=== PATIENT | male | born 1985 | race American Indian/Alaskan Native ===

== ENCOUNTER 2020-10-06 07:26 | Observation (INO) | payer OTHER ==
[2020-10-06] MEDS ORDERED: predniSONE 20 MG TAB PO ONE (08:12)
[2020-10-06] MEDS ORDERED: IPRATROPIUM/ALBUTEROL SULFATE 3 ML AMPUL.NEB IH ONE (08:12)
--- NOTE | 2020-10-06 08:17 | Emergency Department Report ---
ED Shortness of Breath HPI - General Chief Complaint: Upper Respiratory Infection Stated Complaint: ASHLEY/COUGH Time Seen by Provider: 10/06/20 07:30 Source: patient Mode of arrival: Wheelchair Limitations: No Limitations - History of Present Illness Initial Comments: Chief complaint: Shortness of breath cough HPI: This is a 35-year-old male with history of HIV on ART, tobacco dependence, who presents with shortness of breath and cough for 3 days. 1 month ago patient was discharged after 7 days admission at the [facility] for pneumonia. He had a full recovery. He received 2 doses of COVID-19 vaccine. He works in a restaurant. No known sick contacts. He arrived via EMS. He denies fever, chest pain. He has had diarrhea. He smokes cigarettes daily. He was Covid negative according to his report during his last admission at the [facility]. MD Complaint: shortness of breath, cough -: Gradual, days(s) (3 days ago) Severity: moderate Consistency: constant Improves With: nothing Worsens With: nothing Known History Of: HIV Associated Symptoms: cough, other (Diarrhea) Treatments Prior to Arrival: other (EMS transportation) - Related Data Home Medications Medication Instructions Recorded Confirmed Last Taken Darunavir/Cob/Emtri/Tenof Alaf 1 each PO QDAY 10/06/20 10/06/20 Unknown [Symtuza 829-581-963-10 mg Tab] Allergies Allergy/AdvReac Type Severity Reaction Status Date / Time No Known Allergies Allergy Unverified 10/06/20 07:30 ED Review of Systems ROS: Stated complaint: ASHLEY/COUGH Other details as noted in HPI Comment: All other systems reviewed and negative Constitutional: denies: chills, fever, malaise Respiratory: cough, shortness of breath Cardiovascular: denies: chest pain Gastrointestinal: diarrhea. denies: abdominal pain, nausea, vomiting Genitourinary: denies: as per HPI ED Past Medical Hx - Past Medical History Previous Medical History?: Yes Hx Hypertension: Yes Hx HIV: Yes - Surgical History Past Surgical History?: No - Social History Smoking Status: Current Every Day Smoker Substance Use Type: None - Medications Home Medications: Home Medications Medication Instructions Recorded Confirmed Last Taken Type Darunavir/Cob/Emtri/Tenof Alaf 1 each PO QDAY 10/06/20 10/06/20 Unknown History [Symtuza 419-854-729-10 mg Tab] ED Physical Exam - General Limitations: No Limitations General appearance: alert, in no apparent distress, other (Frequent cough) - Head Head exam: Present: atraumatic, normocephalic - Eye Eye exam: Present: normal appearance - ENT ENT exam: Present: mucous membranes moist - Neck Neck exam: Present: normal inspection, full ROM - Respiratory Respiratory exam: Present: respiratory distress, wheezes, decreased breath sounds, prolonged expiratory. Absent: rales, rhonchi, chest wall tenderness, accessory muscle use - Cardiovascular Cardiovascular Exam: Present: regular rate, normal rhythm, normal heart sounds. Absent: systolic murmur, diastolic murmur, rubs, gallop - GI/Abdominal GI/Abdominal exam: Present: soft, normal bowel sounds. Absent: distended, tenderness, guarding, rebound - Rectal Rectal exam: Present: deferred - Extremities Exam Extremities exam: Present: normal inspection - Neurological Exam Neurological exam: Present: alert, oriented X3 - Psychiatric Psychiatric exam: Present: normal affect, normal mood - Skin Skin exam: Present: warm, dry, intact, normal color. Absent: rash ED Course Vital Signs 10/06/20 10/06/20 07:30 09:13 Temperature 98.9 F Pulse Rate 93 H Pulse Rate [ 98 H Anterior Bilateral Throughout] Respiratory 22 Rate Respiratory 28 H Rate [Anterior Bilateral Throughout] Blood Pressure 123/86 [Right] O2 Sat by Pulse 89 Oximetry ED Medical Decision Making - Lab Data Result diagrams: 10/06/20 08:12 10/06/20 09:06 Laboratory Results - last 24 hr 10/06/20 10/06/20 10/06/20 08:12 08:17 08:17 WBC 10.0 RBC 4.58 Hgb 14.8 Hct 44.4 MCV 97 H MCH 32 MCHC 33 RDW 14.2 Plt Count 166 Lymph % (Auto) 18.5 Rhea % (Auto) 9.8 H Eos % (Auto) 1.3 Baso % (Auto) 0.4 Lymph # (Auto) 1.8 Rhea # (Auto) 1.0 H Eos # (Auto) 0.1 Baso # (Auto) 0.0 Seg Neutrophils % 70.0 Seg Neutrophils # 7.0 D-Dimer 240.30 H Lactate Dehydrogenase 248 H C-Reactive Protein 0.90 - Radiology Data Radiology results: report reviewed Patient Name: BEVERLEY HOUSE Gender: Male Date of : 1985 Referring Provider: CALI SIMON Organization: [facility] Accession Number: [id number] Requested Date: October 06, 2020 08:12 Report Status: Final Requested Procedure: 1 Procedure Description: XR chest 1V ap Modality: XR Findings Reporting MD: Dre You Dictation Time: October 06, 2020 07:37 Tumbler Operator: Not available Line Analyst Date: CHEST 1 VIEW 10/06/2020 8:16 AM INDICATION / CLINICAL INFORMATION: Cough, shortness of breath. COMPARISON: None available. FINDINGS: SUPPORT DEVICES: None. HEART / MEDIASTINUM: No significant abnormality. LUNGS / PLEURA: Indistinct pulmonary opacities are seen along the right mid/lower lung. No other significant pulmonary abnormality. No significant pleural effusion. No pneumothorax. ADDITIONAL FINDINGS: No significant additional findings. IMPRESSION: Right pulmonary opacities are concerning for pneumonia given the provided history. Continued radiographic follow-up to resolution is recommended. Signer Name: Dre You MD Signed: 10/06/2020 7:37 AM Workstation Name: [id number] - Medical Decision Making Acute respiratory failure hypoxia, oxygen saturation 89%. [facility] Patient stated he had a full recovery. Currently has multiple right-sided infiltrates seen on chest radiograph today. Differential diagnosis includes community- acquired bacterial organism, atypical viral infection such as COVID-19, opportunistic infection,. Patient has been compliant with ART. Opportunistic infection not likely. P.o. antibiotics initiated emergency department include ceftriaxone azithromycin and Bactrim. Admitted to the hospital service for further treatment evaluation. Patient has not been vaccinated for COVID-19. Covid contact droplet precautions initiated in the emergency department. I spoke with Dr. Us infectious disease franchise business consultant who agreed to evaluate patient Critical care attestation.: If time is entered above; I have spent that time in minutes in the direct care of this critically ill patient, excluding procedure time. ED Disposition Clinical Impression: Acute respiratory failure with hypoxia, Community acquired pneumonia, Suspected COVID-19 virus infection, HIV disease Disposition: OP ADMIT IP TO THIS HOSP Is pt being admited?: Yes Does the pt Need Aspirin: No Condition: Stable Instructions: Bacterial Pneumonia (ED)
--- NOTE | 2020-10-06 08:41 | XRay Report ---
CHEST 1 VIEW 10/06/2020 8:16 AM INDICATION / CLINICAL INFORMATION: Cough, shortness of breath. COMPARISON: None available. FINDINGS: SUPPORT DEVICES: None. HEART / MEDIASTINUM: No significant abnormality. LUNGS / PLEURA: Indistinct pulmonary opacities are seen along the right mid/lower lung. No other sign ificant pulmonary abnormality. No significant pleural effusion. No pneumothorax. ADDITIONAL FINDINGS: No significant additional findings. IMPRESSION: Right pulmonary opacities are concerning for pneumonia given the provided history. Continued radiogra phic follow-up to resolution is recommended. Signer Name: Dre You MD Signed: 10/06/2020 8:37 AM Workstation Name: [id number]
[2020-10-06] MEDS ORDERED: cefTRIAXone/NS 1 GM/50 ML 1 GM/50 ML BAG IV ONE (09:42)
[2020-10-06] MEDS ORDERED: SULFAMETHOXAZOLE/TRIMETHOPRIM 800/160MG DS TAB PO ONE (09:42)
[2020-10-06] MEDS ORDERED: AZITHROMYCIN/NS 500 MG/250 ML 500 MG/250 ML BAG IV ONE (09:42)
[2020-10-06 09:47] LABS: Basophils % (Auto) 0.4 % (0.0-1.8); Eosinophils # (Auto) 0.1 K/mm3 (0.0-0.4); Eosinophils % (Auto) 1.3 % (0.0-4.3); Hematocrit 44.4 % (35.5-45.6); Hemoglobin 14.8 gm/dl (11.8-15.2); Lymphocytes # (Auto) 1.8 K/mm3 (1.2-5.4); Lymphocytes % (Auto) 18.5 % (13.4-35.0); Mean Corpuscular HGB Conc 33 % (32-34); Mean Corpuscular Volume 97 fl (84-94); Monocytes % (Auto) 9.8 % (0.0-7.3); Platelet Count 166 K/mm3 (140-440); Red Blood Count 4.58 M/mm3 (3.65-5.03); Red Cell Distribution Width 14.2 % (13.2-15.2)
[2020-10-06 09:57] LABS: C-Reactive Protein 0.9 mg/dL (0.00-1.30)
[2020-10-06 11:51] LABS: BUN/Creatinine Ratio 12; Blood Urea Nitrogen 13 mg/dL (9-20); Calcium 8.9 mg/dL (8.4-10.2); Hemolysis Index 6
--- NOTE | 2020-10-06 12:39 | Event Note ---
Date: 10/06/20 35-year-old male with HIV on Symtuza admitted with cough and shortness of breath after recent discharge from [facility] for pneumonia. Patient is status post COVID-19 vaccination. Not hypoxic on admission, chest x-ray shows right pulmonary opacities. Labs with WBC 10, CRP 0.9, ferritin 122.5, LDH 248, procalcitonin 0.08. Recs: Empiric ceftriaxone, azithromycin for now Follow-up COVID-19 PCR HIV RNA PCR, CD4 count ordered continue Symtuza - (per hospital formulary therapeutic interchange to TDF, FTC, r/DRV) RSV screen ordered Full consult in a.m. Laurie Us MD, FACP [facility] O: [phone] F: [phone]
[2020-10-06] MEDS ORDERED: ONDANSETRON 4 MG/2 ML INJ IV PRN (20:23)
[2020-10-06] MEDS ORDERED: ACETAMINOPHEN 325 MG TAB PO PRN (20:23)
[2020-10-06] MEDS ORDERED: HYDROmorphone 1 MG/1 ML INJ IV PRN (20:24)
[2020-10-06] MEDS ORDERED: oxyCODONE /ACETAMINOPHEN 5-325MG TAB PO PRN (20:24)
[2020-10-06] MEDS ORDERED: SODIUM CHLORIDE 0.9% 1000 ML 1,000 ML IV SCH (20:30)
--- NOTE | 2020-10-06 20:30 | History and Physical Report ---
History of Present Illness Date of examination: 10/06/20 Date of admission: 10/06/20 11:52 Chief complaint: Shortness of breath for 3 days Cough for 3 days History of present illness: 35-year-old male with a history of HIV and COPD on antiretroviral therapy along with nicotine dependence comes in for shortness of breath of 3 days. Patient was recently discharged from the [facility] after being treated for pneumonia. Apparently had full recovery and received 2 doses of COVID-19 vaccinations recently. 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 Shortness of breath and cough for 3 days cough productive of mucoid sputum. No yellow sputum. Smokes about half a pack a day. No exacerbating or relieving factors. Compliant with his antiretroviral therapy. No orthopnea. Shortness of breath is exertional also. - Past Medical History Previous Medical History?: Yes --Hypertension: Yes --HIV: Yes - Surgical History Past Surgical History?: No - Social History Smoking Status: Current Every Day Smoker Substance Use Type: None - Medications Home Medications: Home Medications Medication Instructions Recorded Confirmed Last Taken Type Darunavir/Cob/Emtri/Tenof Alaf 1 each PO QDAY 10/06/20 10/06/20 Unknown History [Symtuza 741-798-197-10 mg Tab] Review of Systems ROS: Constitutional no weight loss or weight gain no fever or chills HEENT no sore throat no post nasal drip no diplopia Neck no neck stiffness no lymph gland enlargement Chest and lungs shortness of breath and cough for 3 days. Recent pneumonia 1 month ago. 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 no syncope no seizures Skin no rash no itching Psychiatric no depression no homicidal or suicidal tendencies Hematologic no lymphedema or bruising Endocrine no polydipsia no polyuria no cold intolerance no heat intolerance Medications and Allergies Allergies Allergy/AdvReac Type Severity Reaction Status Date / Time No Known Allergies Allergy Verified 10/06/20 14:53 Home Medications Medication Instructions Recorded Confirmed Last Taken Type Darunavir/Cob/Emtri/Tenof Alaf 1 each PO QDAY 10/06/20 10/06/20 Unknown History [Symtuza 830-742-941-10 mg Tab] Furosemide [Lasix] 40 mg PO PRN 10/06/20 10/06/2021 History 40 carvediloL [Coreg] 12.5 mg PO BID 10/06/20 10/06/20 10/06/20 10:00 History lisinopriL [Lisinopril] 20 mg PO DAILY 10/06/20 10/06/20 10/05/20 10:00 History 20 MG Exam - Constitutional Vitals: Temp Pulse Resp BP Pulse Ox 97.3 F L 83 16 119/77 95 10/06/20 13:28 10/06/20 13:28 10/06/20 13:28 10/06/20 13:28 10/06/20 13:28 General appearance: Present: mild distress, well-nourished - EENT Eyes: Present: PERRL ENT: hearing intact, clear oral mucosa - Neck Neck: Present: supple, normal ROM - Respiratory Respiratory effort: normal Respiratory: bilateral: CTA, rhonchi, wheezing - Cardiovascular Heart rate: 78 Rhythm: regular Heart Sounds: Present: S1 & S2. Absent: rub, click - Extremities Extremities: pulses symmetrical, No edema Peripheral Pulses: within normal limits - Abdominal General gastrointestinal: Present: soft, non-tender, non-distended, normal bowel sounds Male genitourinary: Present: normal - Integumentary Integumentary: Present: clear, warm, dry - Musculoskeletal Musculoskeletal: gait normal, strength equal bilaterally - Psychiatric Psychiatric: appropriate mood/affect, intact judgment & insight - Neurologic Neurologic: CNII-XII intact, moves all extremities - Allied Health Allied health notes reviewed: nursing, case management Results - Labs CBC & Chem 7: 10/06/20 08:12 10/06/20 09:06 Labs: Laboratory Last Values WBC 10.0 K/mm3 (4.5-11.0) 10/06/20 08:12 RBC 4.58 M/mm3 (3.65-5.03) 10/06/20 08:12 Hgb 14.8 gm/dl (11.8-15.2) 10/06/20 08:12 Hct 44.4 % (35.5-45.6) 10/06/20 08:12 MCV 97 fl (84-94) H 10/06/20 08:12 MCH 32 pg (28-32) 10/06/20 08:12 MCHC 33 % (32-34) 10/06/20 08:12 RDW 14.2 % (13.2-15.2) 10/06/20 08:12 Plt Count 166 K/mm3 (140-440) 10/06/20 08:12 Lymph % (Auto) 18.5 % (13.4-35.0) 10/06/20 08:12 Giles % (Auto) 9.8 % (0.0-7.3) H 10/06/20 08:12 Eos % (Auto) 1.3 % (0.0-4.3) 10/06/20 08:12 Baso % (Auto) 0.4 % (0.0-1.8) 10/06/20 08:12 Lymph # (Auto) 1.8 K/mm3 (1.2-5.4) 10/06/20 08:12 Giles # (Auto) 1.0 K/mm3 (0.0-0.8) H 10/06/20 08:12 Eos # (Auto) 0.1 K/mm3 (0.0-0.4) 10/06/20 08:12 Baso # (Auto) 0.0 K/mm3 (0.0-0.1) 10/06/20 08:12 Seg Neutrophils % 70.0 % (40.0-70.0) 10/06/20 08:12 Seg Neutrophils # 7.0 K/mm3 (1.8-7.7) 10/06/20 08:12 D-Dimer 240.30 ng/mlDDU (0-234) H 10/06/20 08:17 Sodium 142 mmol/L (137-145) 10/06/20 09:06 Potassium 3.9 mmol/L (3.6-5.0) 10/06/20 09:06 Chloride 102.3 mmol/L (98-107) 10/06/20 09:06 Carbon Dioxide 22 mmol/L (22-30) 10/06/20 09:06 Anion Gap 22 mmol/L 10/06/20 09:06 BUN 13 mg/dL (9-20) 10/06/20 09:06 Creatinine 1.1 mg/dL (0.8-1.3) 10/06/20 09:06 Estimated GFR > 60 ml/min 10/06/20 09:06 BUN/Creatinine Ratio 12 % 10/06/20 09:06 Glucose 86 mg/dL (75-100) 10/06/20 09:06 Calcium 8.9 mg/dL (8.4-10.2) 10/06/20 09:06 Ferritin 122.5 ng/mL (30.0-300.0) 10/06/20 09:06 Lactate Dehydrogenase 248 units/L (91-180) H 10/06/20 08:17 C-Reactive Protein 0.90 mg/dL (0.00-1.30) 10/06/20 08:17 Procalcitonin 0.08 ng/mL (<0.15) 10/06/20 09:06 Coronavirus (PCR) Negative (Negative) 10/06/20 09:44 - Imaging and Cardiology Chest x-ray: report reviewed Imaging and Cardiology: Chest x-ray Right pulmonary opacities are concerning for pneumonia given the provided history. Continue radiographic follow-up to resolution is recommended. Assessment and Plan Advance Directives: Yes (Full code) VTE prophylaxis?: Chemical Plan of care discussed with patient/family: Yes - Patient Problems (1) Acute respiratory failure with hypoxia Current Visit: Yes Status: Acute Plan to address problem: Patient was hypoxic initially. Oxygen supplementation as necessary. O2 sats improved with oxygen supplements. (2) Right lower lobe pneumonia Current Visit: Yes Status: Acute Plan to address problem: Differential diagnosis of PCP because patient had pneumonia recently 1 month ago. For the time being treat as community-acquired pneumonia. Patient initiated on IV Zithromax and IV ceftriaxone. ID consulted. (3) Suspected COVID-19 virus infection Current Visit: Yes Status: Acute Plan to address problem: Covid PCR requested. (4) HIV disease Current Visit: Yes Status: Chronic Plan to address problem: Continue home antiretrovirals. ID also consulted. PCP is a possibility. (5) Hypertension Current Visit: Yes Status: Chronic Qualifiers: Hypertension type: primary hypertension Qualified Code(s): I10 - Essential (primary) hypertension Plan to address problem: Continue antihypertensives. (6) DVT prophylaxis Current Visit: Yes Status: Acute Plan to address problem: On heparin and GI prophylaxis
[2020-10-06] MEDS: carvediloL 12.5 MG TAB PO SCH (22:30)
[2020-10-06] MEDS: LISINOPRIL 20 MG TAB PO SCH (22:30)
[2020-10-06] MEDS: FAMOTIDINE 20 MG TAB PO SCH (22:32)
[2020-10-07] MEDS: guaiFENesin 100 MG/5 ML ORAL LIQD PO PRN ×2 (00:48→06:51)
[2020-10-07 06:27] LABS: Basophils # (Auto) 0.1 K/mm3 (0.0-0.1); Basophils % (Auto) 0.6 % (0.0-1.8); Eosinophils % (Auto) 0.1 % (0.0-4.3); Hematocrit 44.6 % (35.5-45.6); Hemoglobin 15.1 gm/dl (11.8-15.2); Lymphocytes # (Auto) 2.3 K/mm3 (1.2-5.4); Lymphocytes % (Auto) 14.8 % (13.4-35.0); Mean Corpuscular HGB Conc 34 % (32-34); Mean Corpuscular Volume 97 fl (84-94); Monocytes # (Auto) 1.4 K/mm3 (0.0-0.8); Monocytes % (Auto) 8.9 % (0.0-7.3); Platelet Count 172 K/mm3 (140-440); Red Blood Count 4.58 M/mm3 (3.65-5.03); Red Cell Distribution Width 14.7 % (13.2-15.2)
[2020-10-07 06:49] LABS: Alanine Aminotransferase 45 units/L (7-56); Albumin 3.1 g/dL (3.9-5); BUN/Creatinine Ratio 15; Blood Urea Nitrogen 17 mg/dL (9-20); Hemolysis Index 4
[2020-10-07] MEDS: HEPARIN 5,000 UNIT/1 ML VIAL SUB-Q SCH ×2 (09:27→21:33)
[2020-10-07] MEDS: carvediloL 12.5 MG TAB PO SCH ×2 (09:28→21:33)
[2020-10-07] MEDS: LISINOPRIL 20 MG TAB PO SCH (09:28)
[2020-10-07] MEDS: FAMOTIDINE 20 MG TAB PO SCH ×2 (09:28→21:33)
[2020-10-07] MEDS: BENZONATATE 100 MG CAP PO SCH ×3 (09:31→21:33)
[2020-10-07] MEDS ORDERED: cefTRIAXone/NS 2 GM/100 ML 2 GM/100 ML BAG IV SCH (10:00)
[2020-10-07] MEDS ORDERED: AZITHROMYCIN/NS 500 MG/250 ML 500 MG/250 ML BAG IV SCH (10:00)
--- NOTE | 2020-10-07 12:21 | Consultation ---
History of Present Illness - Reason for Consult Consult date: 10/07/20 hiv, pneumonia Requesting physician: IAIN ARCHER - History of Present Illness The patient is a 35-year-old male with HIV on Symtuza admitted with cough and shortness of breath after recent discharge from [facility] for pneumonia. Patient is status post COVID-19 vaccination. Not hypoxic on admission, chest x-ray shows right pulmonary opacities. Continues to complain of significant cough. Labs on admission showed WBC 10.0, D-dimer 240, procalcitonin 0.08. COVID-19 PCR is negative. Patient denies alcohol, does smoke cigarettes daily. Denies history of asthma. Patient was at a motel. HIV diagnosed in 2007, reports HIV doc at the [facility], apparently has been undetectable for 11 years, but doesn't remember CD4 count. Has been on Symtuza for the last few months. Review of Systems: General: no fevers,chills or rigors HEENT: no new visual disturbance Respiratory: Significant cough, shortness of breath Cardiovascular: No chest pain, syncope Gastrointestinal: No nausea, vomiting or diarrhea Genitourinary: No dysuria or hematuria Musculoskeletal: No new or worsening neck pain or back pain Neurologic: No headaches, seizures Hematologic: No easy bruising or bleeding Endocrine: No night sweats or acute weight loss Skin: negative for rash, jaundice Psychiatric: No suicidal or homicidal ideation Medications and Allergies Allergies Allergy/AdvReac Type Severity Reaction Status Date / Time No Known Allergies Allergy Verified 10/06/20 14:53 Home Medications Medication Instructions Recorded Confirmed Last Taken Type Darunavir/Cob/Emtri/Tenof Alaf 1 each PO QDAY 10/06/20 10/06/20 Unknown History [Symtuza 709-476-617-10 mg Tab] Furosemide [Lasix] 40 mg PO PRN 10/06/20 10/06/20 10/05/20 History 40 carvediloL [Coreg] 12.5 mg PO BID 10/06/20 10/06/20 10/06/20 10:00 History lisinopriL [Lisinopril] 20 mg PO DAILY 10/06/20 10/06/20 10/05/20 10:00 History 20 MG Active Meds: Active Medications Acetaminophen (Acetaminophen 325 Mg Tab) 650 mg PO Q4H PRN PRN Reason: Pain MILD(1-3)/Fever >100.5/CORDOVA Benzonatate (Benzonatate 100 Mg Cap) 100 mg PO Q8HR [facility] Last Admin: 10/07/20 09:31 Dose: 100 mg Documented by: Carvedilol (Carvedilol 12.5 Mg Tab) 12.5 mg PO BID [facility] Last Admin: 10/07/20 09:28 Dose: 12.5 mg Documented by: Emtricitabine 200 mg/Tenofovir Disoproxil Fumarate 300 mg 0 mg PO QDAY [facility] Darunavir (Darunavir 800 Mg Tab) 800 mg PO QDAY [facility] Famotidine (Famotidine 20 Mg Tab) 20 mg PO BID [facility] Last Admin: 10/07/20 09:28 Dose: 20 mg Documented by: Guaifenesin (Guaifenesin 100 Mg/5 Ml Oral Liqd) 200 mg PO Q6H PRN PRN Reason: Cough Last Admin: 10/07/20 06:51 Dose: 200 mg Documented by: Heparin Sodium (Porcine) (Heparin 5,000 Unit/1 Ml Vial) 5,000 unit SUB-Q Q12HR [facility] Last Admin: 10/07/20 09:27 Dose: 5,000 unit Documented by: Hydromorphone HCl (Hydromorphone 1 Mg/1 Ml Inj) 0.5 mg IV Q3H PRN PRN Reason: Pain , Severe (7-10) Azithromycin (Zithromax/Ns) 500 mg in 250 mls @ 250 mls/hr IV Q24HR [facility] Last Admin: 10/07/20 10:35 Dose: 250 mls/hr Documented by: Lisinopril (Lisinopril 20 Mg Tab) 20 mg PO DAILY [facility] Last Admin: 10/07/20 09:28 Dose: 20 mg Documented by: Miscellaneous Medication (Darunavir/Cob/Emtri/Tenof Alaf [Symtuza 078-639-492-10 Mg Tab]) 1 each PO QDAY [facility] Last Admin: 10/07/20 09:34 Dose: 1 each Documented by: Ondansetron HCl (Ondansetron 4 Mg/2 Ml Inj) 4 mg IV Q8H PRN PRN Reason: Nausea And Vomiting Oxycodone/Acetaminophen (Oxycodone /Acetaminophen 5-325mg Tab) 1 tab PO Q6H PRN PRN Reason: Pain, Moderate (4-6) Last Admin: 10/07/20 09:30 Dose: 1 tab Documented by: Prednisone (Prednisone 20 Mg Tab) 40 mg PO QDAY [facility] Stop: 10/12/20 12:59 Ritonavir (Ritonavir 100 Mg Tab) 100 mg PO QDAY [facility] Sodium Chloride (Sodium Chloride 0.9% 10 Ml Flush Syringe) 10 ml IV BID [facility] Last Admin: 10/07/20 09:34 Dose: 10 ml Documented by: Sodium Chloride (Sodium Chloride 0.9% 10 Ml Flush Syringe) 10 ml IV PRN PRN PRN Reason: LINE FLUSH Trimethoprim/Sulfamethoxazole (Sulfamethoxazole/Trimethoprim 800/160mg Ds Tab) 1 each PO Q12HR [facility]; Protocol Physical Examination - Physical Exam Narrative exam: Physical Exam: Constitutional: Alert, cooperative. No acute distress Head, Ears, Nose: Normocephalic, atraumatic. External ears, nose normal Eyes: Conjunctivae/corneas clear. No icterus. No ptosis. Neck: Supple, no meningeal signs Oral: no thrush Cardiovascular: S1, S2 normal. Respiratory: b/l rhonchi GI: Soft, non-tender; bowel sounds normal. No peritoneal signs Musculoskeletal: No pedal edema, no cyanosis. Skin: No rash or abscess Hem/Lymphatic: No palpable cervical or supraclavicular nodes. No lymphangitis Psych: Mood ok. Affect normal Neurological: Awake, alert, oriented. No gross abnormality - Constitutional Vitals: Vital Signs Temp Pulse Resp BP Pulse Ox 98.3 F 90 20 121/82 98 10/07/20 04:54 10/07/20 04:54 10/07/20 04:54 10/07/20 04:54 10/07/20 04:54 Temperature -Last 24 Hours Temperature 98.3 F Temperature 98.7 F Temperature 97.3 F Results - Labs CBC & Chem 7: 10/07/20 06:12 10/07/20 06:12 Labs: Abnormal lab results 10/07/20 10/07/20 Range/Units 06:12 06:12 WBC 15.2 H (4.5-11.0) K/mm3 MCV 97 H (84-94) fl MCH 33 H (28-32) pg [place] % (Auto) 8.9 H (0.0-7.3) % [place] # (Auto) 1.4 H (0.0-0.8) K/mm3 Seg Neutrophils % 75.6 H (40.0-70.0) % Seg Neutrophils # 11.5 H (1.8-7.7) K/mm3 Glucose 116 H (75-100) mg/dL Calcium 8.0 L (8.4-10.2) mg/dL Alkaline Phosphatase 34 L (35-129) units/L Albumin 3.1 L (3.9-5) g/dL - Imaging and Cardiology Chest x-ray: report reviewed, image reviewed (patchy right sided infiltrates) Assessment and Plan Cultures: None this admission A/P: 35-year-old male with HIV on Symtuza admitted with cough and shortness of breath after recent discharge from [facility] for pneumonia: #Pneumonia/COPD exacerbation: Procalcitonin is low. COVID-19 PCR is negative. Recent hospitalization at [facility]. #Leukocytosis: Probably due to steroid use yesterday. #HIV diagnosed in 2007, reports HIV doc at the [facility], apparently has been undetectable for 11 years, but doesn't remember CD4 count. Has been on Symtuza for the last few months. Recs: -Procal is low, ceftriaxone discontinued -continue azithromycin -added empiric PO Bactrim till CD4 count is available -f/u HIV RNA PCR, CD4 count -continue Symtuza - (per hospital formulary therapeutic interchange to TDF, FTC, r/DRV) -f/u RSV screen -treat for COPD exacerbation with steroids Laurie Us MD, FACP [facility] O: [phone] F: [phone]
[2020-10-07] MEDS ORDERED: RITONAVIR 100 MG TAB PO SCH (12:30)
[2020-10-07] MEDS ORDERED: DARUNAVIR 800 MG TAB PO SCH (12:30)
--- NOTE | 2020-10-07 12:40 | Progress Note ---
Assessment and Plan - Patient Problems (1) Acute respiratory failure with hypoxia Current Visit: Yes Status: Acute Plan to address problem: Acute respiratory failure secondary to pneumonia COPD. We will continue azithromycin. Continue Solu-Medrol. We will start patient on Phenergan with codeine for severe coughing. Currently afebrile Oxygenation stable without O2. (2) Community acquired pneumonia Current Visit: Yes Status: Acute Plan to address problem: Continue azithromycin for pneumonia. Nebulizers as needed Solu-Medrol as needed supportive care with oxygen as needed. (3) Right lower lobe pneumonia Current Visit: Yes Status: Acute (4) Suspected COVID-19 virus infection Current Visit: Yes Status: Acute Plan to address problem: Patient negative for Covid (5) HIV disease Current Visit: Yes Status: Chronic Plan to address problem: Patient to continue antiretrovirals ID appreciated Empiric Bactrim also initiated. (6) Hypertension Current Visit: Yes Status: Chronic Qualifiers: Hypertension type: primary hypertension Qualified Code(s): I10 - Essential (primary) hypertension Plan to address problem: Stable control. Subjective Date of service: 10/07/20 Interval history: 35-year-old male with a history of HIV compliant with antiretrovirals, COPD, recently diagnosed and discharged with pneumonia from [place] presents this time with productive cough shortness of breath. Patient is admitted for acute respiratory failure secondary to pneumonia with CO PD exacerbation. Patient currently complains mostly of cough. Patient states cough so much ribs are hurting. Objective - Constitutional Vitals: Vital Signs - 12hr 10/07/20 04:54 Temperature 98.3 F Pulse Rate 90 Respiratory 20 Rate Blood Pressure 121/82 O2 Sat by Pulse 98 Oximetry General appearance: Present: no acute distress, well-nourished - EENT Eyes: PERRL, EOM intact ENT: hearing intact, clear oral mucosa Ears: bilateral: normal - Neck Neck: supple, normal ROM - Respiratory Respiratory effort: normal Respiratory: bilateral: diminished, rhonchi, wheezing - Breasts Breasts: normal - Cardiovascular Rhythm: regular Heart Sounds: Present: S1 & S2. Absent: gallop, rub Extremities: pulses intact, No edema, normal color, Full ROM - Gastrointestinal General gastrointestinal: Present: soft, non-tender, non-distended, normal bowel sounds - Genitourinary Male genitourinary: normal - Integumentary Integumentary: clear, warm, dry - Musculoskeletal Musculoskeletal: 1, strength equal bilaterally - Neurologic Neurologic: moves all extremities - Psychiatric Psychiatric: memory intact, appropriate mood/affect, intact judgment & insight - Labs CBC & Chem 7: 10/07/20 06:12 10/07/20 06:12 Labs: Abnormal lab results 10/07/20 10/07/20 Range/Units 06:12 06:12 WBC 15.2 H (4.5-11.0) K/mm3 MCV 97 H (84-94) fl MCH 33 H (28-32) pg [place] % (Auto) 8.9 H (0.0-7.3) % [place] # (Auto) 1.4 H (0.0-0.8) K/mm3 Seg Neutrophils % 75.6 H (40.0-70.0) % Seg Neutrophils # 11.5 H (1.8-7.7) K/mm3 Glucose 116 H (75-100) mg/dL Calcium 8.0 L (8.4-10.2) mg/dL Alkaline Phosphatase 34 L (35-129) units/L Albumin 3.1 L (3.9-5) g/dL
[2020-10-07] MEDS ORDERED: EMTRICITABINE 200 MG, TENOFOVIR 300 MG PO SCH (13:00)
[2020-10-07] MEDS: predniSONE 20 MG TAB PO SCH (14:02)
[2020-10-07] MEDS: SULFAMETHOXAZOLE/TRIMETHOPRIM 800/160MG DS TAB PO SCH ×2 (14:02→21:33)
[2020-10-07] MEDS: PROMETHAZINE/CODEINE 6.25-10 MG ORAL LIQD 5 ML PO PRN (14:02)
[2020-10-08] MEDS: BENZONATATE 100 MG CAP PO SCH ×3 (05:34→22:23)
[2020-10-08] MEDS: guaiFENesin 100 MG/5 ML ORAL LIQD PO PRN (08:37)
[2020-10-08] MEDS: predniSONE 20 MG TAB PO SCH (11:35)
[2020-10-08] MEDS: AZITHROMYCIN 250 MG TAB PO SCH (11:36)
[2020-10-08] MEDS: SULFAMETHOXAZOLE/TRIMETHOPRIM 800/160MG DS TAB PO SCH (11:36)
[2020-10-08] MEDS: FAMOTIDINE 20 MG TAB PO SCH ×2 (11:36→22:23)
[2020-10-08] MEDS: carvediloL 12.5 MG TAB PO SCH ×2 (11:43→22:23)
[2020-10-08] MEDS: LISINOPRIL 20 MG TAB PO SCH (11:44)
[2020-10-08] MEDS: HEPARIN 5,000 UNIT/1 ML VIAL SUB-Q SCH ×2 (11:45→22:23)
[2020-10-08] MEDS: PROMETHAZINE/CODEINE 6.25-10 MG ORAL LIQD 5 ML PO PRN (11:47)
--- NOTE | 2020-10-08 12:40 | Progress Note ---
Assessment and Plan - Patient Problems (1) Acute respiratory failure with hypoxia Current Visit: Yes Status: Acute Plan to address problem: Acute respiratory failure secondary to pneumonia COPD. We will continue azithromycin. Continue Solu-Medrol. We will start patient on Phenergan with codeine for severe coughing. Currently afebrile Oxygenation stable without O2. Watch improved anticipated discharge in a.m. (2) Community acquired pneumonia Current Visit: Yes Status: Acute Plan to address problem: Continue azithromycin for pneumonia. Nebulizers as needed Solu-Medrol as needed supportive care with oxygen as needed. (3) Right lower lobe pneumonia Current Visit: Yes Status: Acute Plan to address problem: Much improved anticipated discharge in a.m. continue current antibiotic coverage continue nebulizers. (4) Suspected COVID-19 virus infection Current Visit: Yes Status: Acute Plan to address problem: Patient negative for Covid (5) HIV disease Current Visit: Yes Status: Chronic Plan to address problem: Patient to continue antiretrovirals ID appreciated Empiric Bactrim also initiated. (6) Hypertension Current Visit: Yes Status: Chronic Qualifiers: Hypertension type: primary hypertension Qualified Code(s): I10 - Essential (primary) hypertension Plan to address problem: Stable control. Subjective Date of service: 10/08/20 Principal diagnosis: Pneumonia Interval history: 35-year-old male with a history of HIV compliant with antiretrovirals, COPD, recently diagnosed and discharged with pneumonia from [place] presents this time with productive cough shortness of breath. Patient is admitted for acute respiratory failure secondary to pneumonia with CO PD exacerbation. Patient feels much better today cough is much improved. Patient able to breathe better. Not requiring oxygen. Anticipated discharge in the a.m. Objective - Constitutional Vitals: Vital Signs - 12hr 10/08/20 10/08/20 10/08/20 04:30 08:40 11:43 Temperature 97.5 F L Pulse Rate 81 82 78 Respiratory 20 Rate Blood Pressure 129/94 98/70 O2 Sat by Pulse 96 94 Oximetry 10/08/20 11:44 Temperature Pulse Rate 78 Respiratory Rate Blood Pressure 98/70 O2 Sat by Pulse Oximetry General appearance: Present: no acute distress, well-nourished - EENT Eyes: PERRL, EOM intact ENT: hearing intact, clear oral mucosa Ears: bilateral: normal - Neck Neck: supple, normal ROM - Respiratory Respiratory effort: normal Respiratory: bilateral: CTA, rhonchi, wheezing (Much improved) - Breasts Breasts: normal - Cardiovascular Rhythm: regular Heart Sounds: Present: S1 & S2. Absent: gallop, rub Extremities: pulses intact, No edema, normal color, Full ROM - Gastrointestinal General gastrointestinal: Present: soft, non-tender, non-distended, normal bowel sounds - Genitourinary Male genitourinary: normal - Integumentary Integumentary: clear, warm, dry - Musculoskeletal Musculoskeletal: 1, strength equal bilaterally - Neurologic Neurologic: moves all extremities - Psychiatric Psychiatric: memory intact, appropriate mood/affect, intact judgment & insight - Labs CBC & Chem 7: 10/07/20 06:12 10/07/20 06:12
--- NOTE | 2020-10-08 13:08 | Progress Note ---
Assessment and Plan Cultures: 10/06/2020 COVID-19 PCR: Negative A/P: 35-year-old male with HIV on Symtuza admitted with cough and shortness of breath after recent discharge from [place] for pneumonia: #Pneumonia/COPD exacerbation: Procalcitonin is low. COVID-19 PCR is negative. Recent hospitalization at [facility]. #Leukocytosis: Probably due to steroid use for COPD exacerbation. #HIV diagnosed in 2007, reports HIV doc at the [facility], apparently has been undetectable for 11 years, but doesn't remember CD4 count. Very complaint with Symtuza. Recs: -continue azithromycin x 5 days total -Smoking cessation advised -Bactrim discontinued -f/u HIV RNA PCR, CD4 count -continue Symtuza - (patient has his own meds) -f/u RSV screen -treat for COPD exacerbation with steroids Laurie Us MD, FACP [facility] ([facility]) O: [phone] F: [phone] Subjective Date of service: 10/08/20 Principal diagnosis: Pneumonia Interval history: Breathing slightly better. No fever. COVID-19 negative. Has been taking his own Symtuza. Objective - Exam Narrative Exam: Physical Exam: Constitutional: Alert, cooperative. No acute distress Head, Ears, Nose: Normocephalic, atraumatic. External ears, nose normal Eyes: Conjunctivae/corneas clear. No icterus. No ptosis. Neck: Supple, no meningeal signs Oral: no thrush Cardiovascular: S1, S2 normal. Respiratory: b/l rhonchi GI: Soft, non-tender; bowel sounds normal. No peritoneal signs Musculoskeletal: No pedal edema, no cyanosis. Skin: No rash or abscess Hem/Lymphatic: No palpable cervical or supraclavicular nodes. No lymphangitis Psych: Mood ok. Affect normal Neurological: Awake, alert, oriented. No gross abnormality - Constitutional Vitals: Vital Signs Temp Pulse Resp BP Pulse Ox 97.5 F L 78 20 98/70 94 10/08/20 04:30 10/08/20 11:44 10/08/20 04:30 10/08/20 11:44 10/08/20 08:40 Temperature -Last 24 Hours Temperature 97.5 F Temperature 97.9 F Temperature 97.5 F - Labs CBC & Chem 7: 10/07/20 06:12 10/07/20 06:12
[2020-10-08 15:25] LABS: CD4/CD8 Ratio 0.88 (0.86-5.00)
[2020-10-08 20:21] LABS: HIV-1 RNA QN PCR 1.86 Log cps/mL
[2020-10-09] MEDS: PROMETHAZINE/CODEINE 6.25-10 MG ORAL LIQD 5 ML PO PRN ×2 (02:25→11:51)
[2020-10-09] MEDS: BENZONATATE 100 MG CAP PO SCH (06:08)
[2020-10-09] MEDS: LISINOPRIL 20 MG TAB PO SCH (09:24)
[2020-10-09] MEDS: predniSONE 20 MG TAB PO SCH (09:24)
[2020-10-09] MEDS: FAMOTIDINE 20 MG TAB PO SCH (09:24)
[2020-10-09] MEDS: AZITHROMYCIN 250 MG TAB PO SCH (09:24)
[2020-10-09] MEDS: carvediloL 12.5 MG TAB PO SCH (09:24)
[2020-10-09] MEDS: HEPARIN 5,000 UNIT/1 ML VIAL SUB-Q SCH (09:25)
--- NOTE | 2020-10-09 09:43 | Discharge Summary ---
Providers - Providers Date of Admission: 10/06/20 11:52 Date of discharge: 10/09/20 Attending physician: DAVION ORLANDO 10/06/20 12:02 Consult to Physician [CONS] Stat Comment: Consulting Provider: SHAHEEN LEUNG Physician Instructions: Reason For Exam: hiv, pneumonia Primary care physician: [facility] Hospitalization Condition: Good Pertinent studies: Chest x-ray consistent with COPD Hospital course: 35-year-old male with a history of HIV compliant with antiretrovirals, COPD, recently diagnosed and discharged with pneumonia from [place] presents this time with productive cough shortness of breath. Patient is admitted for acute respiratory failure secondary to pneumonia with CO PD exacerbation. Patient was ruled out for COVID-19 pneumonia. Patient treated for COPD exacerbation secondary to acute bronchitis. Patient did better after receiving Solu-Medrol and albuterol nebulizer treatments along with antibiotics. Patient be discharged with steroid taper feeling with codeine for persistent cough. Disposition: DC- TO HOME OR SELFCARE Final Discharge Diagnosis (Prints w/discharge instructions): Acute respiratory failure COPD exacerbation pneumonia - Discharge Diagnoses (1) Acute respiratory failure with hypoxia Status: Acute Comment: Resolved. Not requiring O2. Continue prednisone taper at home and antibiotic coverage azithromycin to complete 5 days. (2) Community acquired pneumonia Status: Resolved (3) Right lower lobe pneumonia Status: Acute (4) Suspected COVID-19 virus infection Status: Acute (5) HIV disease Status: Chronic (6) Hypertension Status: Chronic Qualifiers: Hypertension type: primary hypertension Qualified Code(s): I10 - Essential (primary) hypertension Core Measure Documentation - Palliative Care Palliative Care/ Comfort Measures: Not Applicable - Core Measures Any of the following diagnoses?: none Exam - Constitutional Vitals: Temp Pulse Resp BP Pulse Ox 97.4 F L 71 16 112/78 95 10/09/20 06:16 10/09/20 06:16 10/09/20 06:16 10/09/20 06:16 10/09/20 06:16 General appearance: Present: no acute distress, well-nourished - EENT Eyes: Present: PERRL ENT: hearing intact, clear oral mucosa - Neck Neck: Present: supple, normal ROM - Respiratory Respiratory effort: normal Respiratory: bilateral: CTA, wheezing (Persistent wheezing much improved.) - Cardiovascular Heart Sounds: Present: S1 & S2. Absent: rub, click - Extremities Extremities: pulses symmetrical, No edema Peripheral Pulses: within normal limits - Abdominal General gastrointestinal: Present: soft, non-tender, non-distended, normal bowel sounds Male genitourinary: Present: normal - Integumentary Integumentary: Present: clear, warm, dry - Musculoskeletal Musculoskeletal: gait normal, strength equal bilaterally - Psychiatric Psychiatric: appropriate mood/affect, intact judgment & insight - Neurologic Neurologic: CNII-XII intact, moves all extremities Plan Activity: no restrictions Weight Bearing Status: Full Weight Bearing Diet: low salt Follow up with: PRIMARY CARE, [Primary Care Provider] - 7 Days Prescriptions: carvediloL [Coreg] 12.5 mg PO BID #60 predniSONE [Deltasone] 40 mg PO QDAY #20 tablet oxyCODONE /ACETAMINOPHEN [Percocet 5/325 mg] 1 tab PO Q6H PRN #7 tablet PRN Reason: Pain, Moderate (4-6) Promethazine /Codeine [Phenergan/Codeine 6.25-10 mg/5 ml] 10 ml PO Q6H PRN #1 oral.liqd PRN Reason: Cough Benzonatate [Tessalon Perles] 100 mg PO Q8HR #30 capsule Azithromycin [Zithromax TAB] 500 mg PO QDAY #5 tablet
[2020-10-09 12:56] VITALS: BP 131/90
== END 2020-10-09 14:28 | disposition home or self-care (01) ==
LOC: ED 07:26 → 3A 11:52
PROVIDERS: ADMIT Internal Medicine; ATTEND Internal Medicine
DX: J96.01 Acute respiratory failure with hypoxia (principal); Z20.822 Contact with and (suspected) exposure to COVID-19; J18.9 Pneumonia, unspecified organism; B20 Human immunodeficiency virus [HIV] disease; I10 Essential (primary) hypertension; F17.210 Nicotine dependence, cigarettes, uncomplicated
CPT/HCPCS: 36415; 71045; 80048; 80053; 82024; 82728; 83036; 83615; 84145; 85025; 85379; 86140; 87536; 94644; 96361; 96365; 96366; 96368; 96372; 99284; 99406; G0378; J0456; J0696; J1644; J7030; J7512; U0003